=== PATIENT | female | born 1960 | race Caucasian/White ===

== ENCOUNTER → 2017-03-15 | Outpatient (CLI) | payer BC ==
[~2017-03-15] MED LIST: CALCIUM + D 6001 TA1 PO; DIOVAN160 MG PO; FISH OIL500 MG PO; IMMODIUM1 MG/5 ML PO; LESCOL XL80 MG PO; METOPROLOL SUC100 MG PO; MULTI-DAY1 TAB PO; NATURAL VITA100 UNIT PO; PERCOCET 5-3251 TAB PO; PRILOSEC PO; SINGULAIR PO; XYZAL5 MG PO; ZOLOFT50 MG PO
--- NOTE | ~2017-03-15 | CT137 ---
[facility] A Service [facility] RADIOLOGY TEXT RESULTS PATIENT: LEONIDAS SPARROW LOCATION: [facility] : 60 UNIT #: [id number] AGE: [address]: Abbey Gramajo MD SEX: F ORDER DR: [id number] [place] [id number] O MR#: [id number] Acc #: [id number] NAME: LEONIDAS SPARROW : 1960 SEX: F STUDY DATE/TIME: 03/15/2017 8:33 UNIT: [facility] ROOM: STUDY DESCRIPTION: CT Lung Screening annual Attending Physician: Abbey Gramajo M.D. Referring Physician: Abbey Gramajo M.D. Ordering Physician: Abbey Gramajo M.D. Primary Care Physician: Abbey Gramajo M.D. MEDICAL IMAGING REPORT This report is preliminary unless electronic signature is present. EXAM CT lung cancer screening. INDICATION Lung cancer screening. 38 pack-year smoking history. PROCEDURE Unenhanced low-dose CT of the chest performed per lung cancer screening protocol. CTDI 2.96 mGy. Total DLP 124 mGy-cm. This CT exam was performed with one or more of the following radiation dose reduction techniques: automatic exposure control, adjustment of mA and/or kV according to patient size, and iterative reconstruction. COMPARISON 01/17/2016 FINDINGS Emphysema. No suspicious pulmonary nodule. Atelectasis in the left lung base. No adenopathy. No acute findings included upper abdomen. No aggressive appearing bone lesions. IMPRESSION 1. No suspicious pulmonary nodule. 2. Lung-RADS category 1 negative. Per the ACR Lung-RADS recommendations, suggest patient continue annual low-dose lung cancer screening. Dictated by... Jagdeep Lucas M.D. [facility] A Service [facility] RADIOLOGY TEXT RESULTS PATIENT: LEONIDAS SPARROW LOCATION: [facility] : 60 UNIT #: [id number] AGE: [address]: Abbey Gramajo MD SEX: F ORDER DR: THIS IS AN ELECTRONICALLY VERIFIED REPORT Jagdeep Lucas M.D. at 03/18/2017 8:22 AM [email or web address]/[email or web address] TD: 03/15/2017 10:13 JOB #: [id number] MEDICAL IMAGING REPORT Page 1 of 1
== END | disposition home or self-care (01) ==
LOC: SCT 08:25
DX: F17.210 Nicotine dependence, cigarettes, uncomplicated (principal)
CPT/HCPCS: G0297